=== PATIENT | female | born 1935 ===

== ENCOUNTER 2024-04-15 05:25 | Day surgery (SDC) | payer OTHER ==
[2024-04-10 09:22] LABS: HEMATOCRIT 29.6 % (36.0-45.00); MEAN CELL VOLUME 89.5 fL (80.00-100.00); MEAN CORPUSCULAR HEMOGLOBIN 30.3 pg (27.00-32.0); MEAN CORPUSCULAR HGB CONC 33.8 g/dl (32.0-36.0); PLATELET COUNT 218 K/uL (150-450); RED CELL DISTRIBUTION WIDTH 15.7 % (11.5-14.5)
[2024-04-10 09:32] LABS: PH,URINE 6.5 (5.0-8.0); URINE APPEARANCE Clear; URINE BILIRRUBIN Negative (NEGATIVE); URINE BLOOD Negative; URINE COLOR Yellow; URINE GLUCOSE Negative (NEGATIVE); URINE KETONE Negative (NEGATIVE); URINE LEUKOCYTE Trace; URINE NITRATE Negative; URINE PROTEIN Trace (NEGATIVE); URINE UROBILINOGEN 0.2 E.U./dl
[2024-04-10 09:33] LABS: URINE BACTERIA 16.3 uL (0.0-1933); URINE EPITHELIAL CELLS 6.9 uL (0.0-38.8); URINE RBC 3.6 uL (0.0-20.8)
[2024-04-10 09:46] LABS: INR 1.08; PARTIAL THROMBOPLASTIN TIME 37.4 SECONDS (22.0-34.0); PROTHROMBIN TIME 11.7 SECONDS (9.0-11.5)
[2024-04-10 10:08] VITALS: BP 140/70
[2024-04-10 10:21] LABS: URINE CAST 0.15 uL (0.0-1.40)
[2024-04-10 10:37] LABS: ALBUMIN 3.6 gm/dL (3.4-5.0); BILIRUBIN TOTAL 1.13 mg/dL (0.3-1.2); CREATININE SERUM 0.93 mg/dL (0.55-1.02); GFR 57.16; GLOBULINA 3.5 G/DL (2.4-3.5); POTASSIUM 4.53 mEq/L (3.5-5.1); TOTAL PROTEIN 7.1 gm/dL (6.4-8.2)
[2024-04-10 13:19] LABS: RH POSITIVE
[~2024-04-15 05:25] MED LIST: CARVEDILOL25 MG; CHILDREN'S ASPI81 MG PO; LASIX20 MG PO; LIPITOR20 MG PO; NORVASC2.5 M1 PO; OMEPRAZOLE MAGN20 MG PO; SYNTHROID75 MCG PO; SYNTROID; VASOTEC20 M1 PO; XANAX XR0.5 MG PO
[2024-04-15] MEDS ORDERED: KETOROLAC TROMETHAMINE 30 MG VIAL IV ONE ×2 (08:15→08:25)
[2024-04-15] MEDS ORDERED: ONDANSETRON HCL 2 MG/ML VIAL IV ONE (08:15)
[2024-04-15] MEDS ORDERED: MORPHINE SULFATE 2 MG/ML CARTRIDGE IV ONE ×2 (08:55→09:25)
== END 2024-04-15 11:45 | disposition home or self-care (01) ==
LOC: CIR.AMB 05:25
PROVIDERS: ATTEND Obstetrics & Gynecology
DX: N85.8 Other specified noninflammatory disorders of uterus (principal); D25.9 Leiomyoma of uterus, unspecified; N95.0 Postmenopausal bleeding